=== PATIENT | male | born 1970 | race Caucasian/White ===

== ENCOUNTER 2021-09-23 18:10 | Emergency (ER) | payer OTHER ==
[2021-09-23] MEDS ORDERED: Diphtheria,Pertussis(Acell),Tetanus Vaccine 0.5 ML Syringe IM ONE (21:10)
== END 2021-09-23 21:37 | disposition home or self-care (01) ==
LOC: MW.ED 18:10
DX: S61.411A Laceration without foreign body of right hand, initial encounter (principal); Z91.013 Allergy to seafood; Z79.82 Long term (current) use of aspirin; Z23 Encounter for immunization; W26.0XXA Contact with knife, initial encounter
CPT/HCPCS: 90471; 90715; 99282